=== PATIENT | male | born 1995 | race African-American/Black ===

== ENCOUNTER 2018-01-25 11:08 | Emergency (ER) | payer SELFPAY ==
[~2018-01-25] VITALS: Ht 170.2 cm; Wt 61.4 kg
[2018-01-25 11:11] VITALS: BP 129/108; TEMP 98
[2018-01-25] MEDS ORDERED: NEURONTIN400 MG/CAP PO (11:38)
[2018-01-25] MEDS ORDERED: EPIPEN 2-PAK1 MG/ML IM (11:38)
[2018-01-25] MEDS ORDERED: PERCOCET 325 MG1 TA3 PO (11:38)
[2018-01-25] MEDS ORDERED: PERCOCET 325 MG1 TA2 PO (12:03)
[2018-01-25 12:45] VITALS: PULSE 66
== END 2018-01-25 12:47 | disposition home or self-care (01) ==
LOC: COL.ER 11:08
DX: S31.000A Unspecified open wound of lower back and pelvis without penetration into retroperitoneum, initial encounter (principal); W34.00XA Accidental discharge from unspecified firearms or gun, initial encounter